=== PATIENT | male | born 1975 ===

== ENCOUNTER → 2017-05-12 | Outpatient (CLI) | payer OTHER ==
[~2017-05-12] MED LIST: CONTRAST GIVEN MC
[2017-05-12] MEDS: IOHEXOL 300 MG/ML 100ML VIAL. IV (13:16)
== END | disposition home or self-care (01) ==
LOC: KCIC CT 12:39
DX: L72.3 Sebaceous cyst (principal); J32.0 Chronic maxillary sinusitis; R22.0 Localized swelling, mass and lump, head
CPT/HCPCS: 70487; Q9967

== ENCOUNTER 2019-02-13 11:16 | Emergency (ER) | payer OTHER ==
[~2019-02-13] VITALS: Ht 172.7 cm; Wt 93.0 kg
[2019-02-13 11:35] VITALS: BP 128/88
--- NOTE | 2019-02-13 11:43 | PHYS DOC ---
Past Medical History Past Medical History: No Pertinent History Additional Past Surgical Histo: R knee Adult General Chief Complaint Chief Complaint: KNEE INJURY HPI HPI Patient is a 43-year-old male who presents to the emergency department for eval uation. He states he was trying to get away from a dog at work yesterday and injured his right knee when doing so, he states he twisted at all currently and felt a popping and grinding sound in his medial right knee. He is not able to fully bend and extend his knee secondary to pain. Is able to hobble, and ambulate on his right knee, but is not able to put full weight on his right knee. He denies any numbness or weakness or any other injuries.Movement and palpation, and attempted ambulation worsen the patient's pain. There are no alleviating factors to his symptoms. He has a surgical scar in the anterior aspect of his right knee, he states at the age of 89 years old he had a foreign which became impaled in his knee, which caused him to be hospitalized in [facility] for several months, with wound related issues, but that eventually healed. He has also had a prior arthroscopic surgery on his right knee. Review of Systems Review of Systems Constitutional: Denies fever or chills [] Eyes: Denies change in visual acuity, redness, or eye pain [] Musculoskeletal: Denies back pain or joint pain, other than the right knee [] Integument: Denies rash or skin lesions [] Neurologic: Denies headache, focal weakness or sensory changes [] Allergies Allergies Allergies Coded Allergies Type Severity Reaction Last Updated Verified No Known Drug Allergies 05/12/17 No Physical Exam Physical Exam PHYSICAL EXAM: HEENT: Atruamatic NECK: Supple, normal ROM, non-tender. CARDIAC: Regular Rate and Rhythm LUNGS: Clear Bilaterally EXTREMITIES: There is questionable mild joint effusion on the right knee. Range of motion is limited secondary to pain, but present at approximately 50% of full. There is no ligamentous laxity to anterior, posterior, medial, or lateral stress, but both medial and lateral stress are painful to the patient. Distal PMS are intact. The remainder the extremities are unremarkable, with normal range of motion, distal pulses, motor, and sensory function is normal, the remainder the extremities are atraumatic. Current Patient Data Vital Signs Vital Signs Date Time Temp Pulse Resp B/P (MAP) Pulse Ox O2 Delivery O2 Flow Rate FiO2 02/13/19 11:35 98.3 77 16 128/88 (101) 99 Room Air 98.3 EKG EKG [] Radiology/Procedures Radiology/Procedures PROCEDURE: KNEE RIGHT 4V 4 views of the right knee without comparison for knee injury, pain medially, patient was running and twisted his knee yesterday. FINDINGS: There is no fracture, dislocation, or acute osseous abnormality identified. A bulky patellar enthesophyte is present. There is mild narrowing of the lateral joint compartment, with relative preservation of the medial joint compartment. No suprapatellar joint effusion is evident. IMPRESSION: 1. No acute osseous abnormality of the right knee.[] Course & Med Decision Making Course & Med Decision Making Pertinent Imaging studies reviewed. (See chart for details) []Patient remains stable. I discussed test results, the need for close follow- up, and return precautions. Dragon Disclaimer Dragon Disclaimer This electronic medical record was generated, in whole or in part, using a voice recognition dictation system. Departure Departure Impression: Primary Impression: Knee sprain Disposition: 01 HOME, SELF-CARE Condition: STABLE Referrals: KAREN BENJAMIN (PCP) KEI AGUILERA II, MD Patient Instructions: Knee Immobilizer, [id number], Knee Sprain Additional Instructions: Follow-up with orthopedics, for further outpatient evaluation of your knee. Weightbearing as tolerated, especially with the knee immobilizer, which may limit the discomfort and further injury of your knee. Scripts Diclofenac Sodium (DICLOFENAC SODIUM) 50 Mg Tablet.dr 1 TAB PO BID, #20 TAB 0 Refills Prov: SHYLA DUMONT MD 02/13/19 SHYLA DUMONT MD Feb 13, 2019 11:43
--- NOTE | 2019-02-13 12:09 | RAD ---
4 views of the right knee without comparison for knee injury, pain medially, patient was running and twisted his knee yesterday. FINDINGS: There is no fracture, dislocation, or acute osseous abnormality identified. A bulky patellar enthesophyte is present. There is mild narrowing of the lateral joint compartment, with relative preservation of the medial joint compartment. No suprapatellar joint effusion is evident. IMPRESSION: 1. No acute osseous abnormality of the right knee. Electronically signed by: Jose Montgomery MD (02/13/2019 12:06 PM) [id number]
[2019-02-13] MEDS ORDERED: DICL50TA4 PO (12:21)
== END 2019-02-13 12:37 | disposition home or self-care (01) ==
LOC: ER 11:16
DX: S83.91XA Sprain of unspecified site of right knee, initial encounter (principal); Z98.890 Other specified postprocedural states; X50.1XXA Overexertion from prolonged static or awkward postures, initial encounter; Y93.02 Activity, running; Y92.89 Other specified places as the place of occurrence of the external cause; Y99.8 Other external cause status
CPT/HCPCS: 29505; 73564; 99284